=== PATIENT | male | born 1965 | race Two or more races ===

== ENCOUNTER 2024-07-20 20:30 | Emergency (ER) | payer MEDICAID, OTHER ==
[2024-07-21] MEDS ORDERED: IBUP-1456 PO (05:49)
== END 2024-07-20 21:44 | disposition left against medical advice (07) ==
LOC: EDBD 20:30 → ER 20:30
DX: Z04.1 Encounter for examination and observation following transport accident (principal); Z53.21 Procedure and treatment not carried out due to patient leaving prior to being seen by health care provider

== ENCOUNTER 2024-07-21 02:59 | Emergency (ER) | payer MEDICAID ==
[~2024-07-21] VITALS: Ht 175.3 cm; Wt 61.3 kg
[2024-07-21 03:09] VITALS: BP 129/85; PULSE 76; RESP 16; O2SAT 100
[2024-07-21] MEDS: IBUPROFEN 800 MG TAB PO ONE (05:43)
[2024-07-21] MEDS ORDERED: IBUP-1456 PO (05:49)
== END 2024-07-21 05:56 | disposition home or self-care (01) ==
LOC: ER 02:59
DX: S29.012A Strain of muscle and tendon of back wall of thorax, initial encounter (principal); S39.012A Strain of muscle, fascia and tendon of lower back, initial encounter; V43.52XA Car driver injured in collision with other type car in traffic accident, initial encounter; Y93.89 Activity, other specified; Y92.488 Other paved roadways as the place of occurrence of the external cause; Y99.8 Other external cause status
CPT/HCPCS: 72128; 72131